=== PATIENT | female | born 1965 | race African-American/Black ===

== ENCOUNTER 2017-04-12 15:12 | Emergency (ER) | payer MEDICAID ==
[~2017-04-12] VITALS: Ht 177.8 cm; Wt 66.7 kg
[2017-04-12] MEDS ORDERED: Ketorolac 30mg Inj IV ONE (15:30)
--- NOTE | 2017-04-12 15:39 | Emergency Room Report ---
History of Present Illness General Chief Complaint: Abdominal Pain Source: Patient Present Illness HPI [id number] BIBEMS for 3 days of constant, sharp, 8/10 right side abd pain radiating to back. Assoc with chills Denies nausea/vomiting, diarrhea, previous surgery, other medical problems Takes ASA occasionally for headache Denies history of renal stones, UTI/pyelo No sick contacts, travel Allergies: Coded Allergies: No Known Allergies (Unverified , 04/12/17) Patient History Past Medical History: none Past Surgical History: none Pertinent Family History: none Social History: Denies: smoking, alcohol use, drug use Last Menstrual Period: N/A Now: No Immunizations: UTD Reviewed Nursing Documentation: PMH: Agreed, PSxH: Agreed Nursing Documentation-PMH Past Medical History: No Stated History Review of Systems All Other Systems: negative except mentioned in HPI Physical Exam Vital Signs Date Time Temp Pulse Resp B/P (MAP) Pulse Ox O2 Delivery O2 Flow Rate FiO2 04/12/17 15:05 100.2 100 18 139/87 98 Room Air Sp02 EP Interpretation: reviewed, normal General Appearance: normal inspection, well appearing, no apparent distress, alert, GCS 15, non-toxic, other - Writhing on stretcher Head: normocephalic, atraumatic Eyes: bilateral eye PERRL, bilateral eye EOMI ENT: normal ENT inspection, hearing grossly normal, normal voice Neck: normal inspection, full range of motion, supple, no bony tend Respiratory: normal inspection, lungs clear, normal breath sounds, no respiratory distress, no retraction, no wheezing Cardiovascular #1: regular rate, rhythm, no edema Gastrointestinal: normal inspection, normal bowel sounds, soft, non-distended, no guarding, no hernia, no pulsatile mass, no rebound, other - Hyperalgesia to any palpation of abdomen, particularly right side Genitourinary: CVA tenderness (R) Musculoskeletal: normal inspection, back normal, normal range of motion, Jade' s Sign negative Neurologic: normal inspection, alert, oriented x3, responsive, principal technical specialist III-XII nml as tested, motor strength/tone normal, speech normal Psychiatric: normal inspection, judgement/insight normal, mood/affect normal Skin: normal inspection, normal color, no rash Medical Decision Making Diagnostic Impression: Primary Impression: Abdominal pain Qualified Codes: R10.11 - Right upper quadrant pain Additional Impressions: Fever and chills Cocaine abuse Pyelonephritis ER Course R abd pain, CVAT with fever UA grossly infected Not Leuks elevated No other LFT, lipase abnormality Feels much better with IV toradol Empiric IV Abx for pyelo given in ED Rx for addiitonal 6 days of Cipro Advised against cocaine use DC home Return for worsening pain, unable to tolerate PO/Abx Last Vital Signs Date Time Temp Pulse Resp B/P (MAP) Pulse Ox O2 Delivery O2 Flow Rate FiO2 04/12/17 15:05 100.2 100 18 139/87 98 Room Air Status: improved Disposition: HOME, SELF-CARE Scripts Ciprofloxacin Hcl* (CIPROFLOXACIN HCL*) 500 Mg Tablet 500 MG ORAL Q12H for 6 Days, #12 TAB 0 Refills Prov: ANJUM ROMANO M.D. 04/12/17 ANJUM ROMANO M.D. Apr 12, 2017 15:39
[2017-04-12 16:32] LABS: EOSINOPHILS % (AUTO) 0.6 % (0.0-3.0); LYMPHOCYTES % (AUTO) 9.6 % (20.0-45.0); MEAN CORPUSCULAR HEMOGLOBIN 30.3 PG (27.0-31.0); MEAN CORPUSCULAR HGB CONC 33.5 G/DL (32.0-36.0); MEAN CORPUSCULAR VOLUME 90 FL (80-99); MEAN PLATELET VOLUME 7.8 FL (6.5-10.1); MONOCYTES % (AUTO) 5.9 % (1.0-10.0); NEUTROPHILS % (AUTO) 81.9 % (45.0-75.0); PLATELET COUNT 376 K/UL (150-450); RED BLOOD COUNT 4.84 M/UL (4.20-5.40); WHITE BLOOD COUNT 13.8 K/UL (4.8-10.8)
[2017-04-12 16:45] LABS: APPEARANCE,URINE CLEAR; KETONES,URINE 3+ (NEGATIVE); LEUKOCYTE ESTERASE ,URINE 3+ (NEGATIVE); NITRITE,URINE NEGATIVE (NEGATIVE); PH,URINE 6 (4.5-8.0); PROTEIN,URINE 1+ (NEGATIVE); UROBILINOGEN,URINE NORMAL MG/DL (0.0-1.0)
[2017-04-12 16:58] LABS: WBC,URINE 15-20 /HPF (0 - 2)
[2017-04-12 16:59] LABS: BACTERIA,URINE FEW /HPF; SQUAMOUS EPITHELIAL CELL,UR FEW /LPF (NONE/OCC)
[2017-04-12 17:09] LABS: ALANINE AMINOTRANSFERASE 28 U/L (3-33); ALBUMIN/GLOBULIN RATIO 1.1 (1.0-2.7); ANION GAP 17 (5-15); ASPARTATE AMINO TRANSFERASE 31 U/L (5-40); CALCIUM 9.6 mg/dL (8.6-10.2); CARBON DIOXIDE 25 mEQ/L (20-30); CHLORIDE 93 mEQ/L (98-107); CREATININE 0.9 mg/dL (0.5-0.9); GLOMERULAR FILTRATION RATE > 60 mL/min (>60); HEMOLYSIS 33; LIPASE 12 U/L (< 60); POTASSIUM 4.2 mEQ/L (3.4-4.9); SODIUM 135 mEQ/L (135-145)
[2017-04-12] MEDS ORDERED: CIPROFLOXACIN500 M2 ORAL (17:14)
[2017-04-12 18:28] VITALS: BP 122/64
[2017-04-12 18:59] VITALS: BP 122/64
== END 2017-04-12 19:02 | disposition home or self-care (01) ==
LOC: EDBD 15:12 → EMR 15:51
DX: R10.9 Unspecified abdominal pain (principal); R50.9 Fever, unspecified; F14.10 Cocaine abuse, uncomplicated; N12 Tubulo-interstitial nephritis, not specified as acute or chronic
CPT/HCPCS: 36415; 80053; 80300; 81003; 81025; 83690; 85025; 87086; 96361; 96374; 96375; 99284; J1885; J1956